=== PATIENT | female | born 1995 | race Hispanic/Latino ===

== ENCOUNTER 2018-11-19 19:25 | Observation (INO) | payer OTHER, SELFPAY ==
[2018-11-19 20:32] VITALS: BMI 27.4
[2018-11-19] MEDS ORDERED: Famotidine 20 MG TAB PO SCH (21:00)
[2018-11-19] MEDS ORDERED: Mag-Al 1200 mg/1200 mg/30 ML UDCUP PO SCH (21:00)
[2018-11-19] MEDS ORDERED: Sodium Chloride 0.9% 10 ML ONE (21:21)
[2018-11-19] MEDS ORDERED: hydrALAZINE 20 MG/ML VIAL SLOW IVP PRN (21:22)
[2018-11-19] MEDS ORDERED: Acetaminophen 500 MG TAB PO PRN (21:22)
[2018-11-19] MEDS ORDERED: Ondansetron PF 4 MG/2 ML Vial IVP PRN (21:22)
[2018-11-19] MEDS ORDERED: NS 0.9% w/ 40 MEQ KCL 1,000 ML IV SCH (21:30)
[2018-11-19 22:41] VITALS: TEMP 98.5
--- NOTE | 2018-11-19 22:53 | HP ---
PRIMARY OB: Out of town admission, [place]. CHIEF COMPLAINT: Abdominal pain and hyponatremia. HISTORY OF PRESENT ILLNESS: The patient is a 23-year-old, G1, P0 female with an intrauterine at 30 weeks and 6 days, who was referred to the [facility] ER from [facility] for abdominal pain. There, patient was evaluated and found to have hyponatremia of 124 with this right lower quadrant pain, right-sided abdominal pain, and was transferred here for evaluation. The patient reports that she has had this right-sided pain for a long period of time and has been told by her OB doctor that it is ligament pain and is not primarily concerned about other than she had this very short episode of intense abdominal pain causing her breath to be taken away and has since resolved. The patient was unaware of her low sodium but reports that she has vomited three times today. She denies any headache, chest pain, shortness of breath, cough, wheezing, diarrhea, constipation, hip problems, knee problems, muscle weakness, vaginal bleeding, leakage of fluid, urinary urgency or frequency. The patient does report she has an appetite. PAST MEDICAL HISTORY: Negative. PAST SURGICAL HISTORY: Negative. SOCIAL HISTORY: Negative. ALLERGIES: NO KNOWN DRUG ALLERGIES. MEDICATIONS: vitamins. REVIEW OF SYSTEMS: Per HPI. OB LABS: Unavailable at the time of dictation. PHYSICAL EXAMINATION: VITAL SIGNS: Blood pressure is 112/71, heart rate of 70, respiratory rate of 16, and temperature 99.3. GENERAL: She appears to be in no acute distress. She is alert, oriented, cooperative, and pleasant to interact with. HEENT: Head is normocephalic, atraumatic. LUNGS: Clear to auscultation bilaterally. HEART: Regular rate and rhythm. ABDOMEN: Gravid, soft, nontender. EXTREMITIES: Nontender, nonedematous. CERVICAL: Exam has been deferred at this time. heart tracing shows the fetus with a baseline in the 140s with moderate long-term variability, positive 15 x 15 accelerations. She is having multiple shallow variables lasting about 10 seconds. No contractions on the monitor. LABORATORY DATA: Reviewing the outside labs, the patient has sodium of 124, potassium of 3.2, glucose of 123, creatinine of 0.5, serum osmolality of 249. ASSESSMENT AND PLAN: The patient is a 23-year-old, G1, P0 female with an intrauterine at 30 weeks and 6 days with musculoskeletal pains of and likely chronic hyponatremia as the patient is without symptoms. I have ordered serum and urine osmolalities, as well as serum sodium. The patient has been placed on normal saline with potassium at maintenance and medicine hospitalist has been consulted for further evaluation of her condition. There does not appear to be any significant obstetric concerns at this time. The patient will be put under observation until recommendations are made for further evaluation. Job ID: [id number]
[2018-11-19 23:04] LABS: Anion Gap 12 mmol/L (10-20); BUN (Urea Nitrogen) 5 mg/dL (7.0-18.7); Calc. Creatinine Clearance 195 mL/min (70-130); Calcium 8.7 mg/dL (7.8-10.44); Carbon Dioxide 20 mmol/L (22-29); Chloride 107 mmol/L (98-107); Estimated GFR-MDRD Greater than 90; Glucose 107 mg/dL (70-105); Potassium 3.5 mmol/L (3.5-5.1); Sodium 135 mmol/L (136-145)
--- NOTE | 2018-11-19 23:13 | CON ---
DATE OF CONSULTATION: 11/19/2018 PRIMARY SERVICE ATTENDING: Dr. Galan with OB hospitalist service. REASON FOR CONSULT: Hyponatremia. HISTORY OF PRESENT ILLNESS: This is a 23-year-old female, G1, P0, at approximately 30 weeks gestation, presenting to Labor and Delivery triage for abdominal pain and hyponatremia. The patient was initially evaluated at the [facility] OB triage unit and referred to [facility] Labor and Delivery due to hyponatremia and right lower quadrant abdominal pain. The patient underwent evaluation including screening metabolic survey showing sodium level 124 and potassium of 3.2. The patient received intravenous normal saline, as well as Tylenol. The patient has intermittent abdominal pain thought to be round ligament in nature. The patient underwent transabdominal ultrasound evaluation showing intrauterine with heart rates in the 140s with movement noted. The patient states her has been fairly unremarkable except for intermittent nausea and reflux. The patient takes Tylenol as needed, Tums, and vitamin. The patient denied any visual disturbance, unilateral weakness, shortness of breath, chest pain, or diarrhea. The patient does admit to three episodes of emesis on 11/19/2018 after eating. PAST MEDICAL HISTORY: Reviewed and negative. PAST SURGICAL HISTORY: Reviewed and negative. CURRENT MEDICATIONS: 1. vitamin daily. 2. Tylenol p.r.n. 3. Tums p.r.n. ALLERGIES: NO KNOWN DRUG ALLERGIES. FAMILY HISTORY: No inheritable disease per patient report. SOCIAL HISTORY: No current alcohol, tobacco, or illicit drug use. Resides in [place], [place]. REVIEW OF SYSTEMS: CONSTITUTIONAL: Negative for weight loss or gain, ability to conduct usual activities. SKIN: Negative for rash, itching. EYES: Negative for double vision, pain. ENT/MOUTH: Negative for nose bleeding, neck stiffness, pain, tenderness. CARDIOVASCULAR: Negative for palpitations, dyspnea on exertion, orthopnea. RESPIRATORY: Negative for shortness of breath, wheezing, cough, hemoptysis, fever or night sweats. GASTROINTESTINAL: Negative for poor appetite, abdominal pain, heartburn, nausea, vomiting, constipation, or diarrhea. GENITOURINARY: Negative for urgency, frequency, dysuria, nocturia. MUSCULOSKELETAL: Negative for pain, swelling. NEUROLOGIC/PSYCHIATRIC: Negative for anxiety, depression. ALLERGY/IMMUNOLOGIC: Negative for skin rash, bleeding tendency. Otherwise, negative except as stated per HPI. PHYSICAL EXAMINATION: VITAL SIGNS: Currently, blood pressure 117/77, pulse 98, respiratory rate 16, temperature 97.3 degrees Fahrenheit, O2 saturation 98% on room air. GENERAL APPEARANCE: This is a 23-year-old female, alert and oriented x3, pleasant, smiling, in no acute distress. HEENT: Pupils are equal, round, reactive to light and accommodation. Extraocular muscles are intact. No scleral icterus. No conjunctival injection. Nares patent. OP is clear. Teeth in good repair. NECK: Supple. No cervical adenopathy. No thyromegaly. No carotid bruits. No JVD appreciated. Cervical spine with full active and passive range of motion. No meningeal signs noted. CHEST: Lungs are clear to auscultation bilaterally. CARDIOVASCULAR: S1-S2 without noted murmur, rub, or gallop. ABDOMEN: Gravid with fundus approximately 2 to 3 cm above the umbilicus. Mild tenderness to palpation on right and left upper quadrants. No rebound or guarding appreciated. Bowel sounds are positive in all 4 quadrants. EXTREMITIES: Warm and dry with fair turgor. No clubbing, cyanosis, or asymmetric edema appreciated. Pulses palpable distally at the dorsalis pedis, posterior tibial, and popliteal arteries bilaterally. Capillary refill less than 2 seconds. NEUROLOGIC: Cranial nerves 2 through 12 are grossly intact. No focal or lateralizing signs appreciated. PERTINENT LAB AND X-RAY FINDINGS: Sodium 124, potassium 3.2, chloride 99, CO2 of 23, BUN 7, creatinine 0.5, glucose 123. CBC showed a white blood cell count of 13.4, hemoglobin 12, hematocrit 36 and platelet count 159, with normal differential. Urinalysis positive for ketones, specific gravity 1.020, positive leukocyte esterase with urine microscopy showing 6-10 squamous epithelial cells. LFTs within normal limits. Limited abdominal ultrasound dated 11/19/2018 showed no acute process. ASSESSMENT AND PLAN: 1. Hyponatremia. Suspect volume mediated due to intrauterine and recent emesis. Recommend repeat basic metabolic profile now. Continue 1 L of normal saline. 2. Hypokalemia, mild. Suspect secondary to GI loss due to emesis. Potassium chloride supplementation. Repeat potassium level. 3. Intrauterine at 30+ weeks, stable currently. Continue routine care. heart tones in the 140s. 4. Nausea and vomiting, suspect secondary to #3. Antiemetics p.r.n. Encourage increased p.o. intake of free water. 5. Prophylaxis. vitamin daily. Tums p.r.n. 6. Code status is full. Surrogate medical decision maker not identified. Thank you for the consultation. We will continue to monitor with primary service. Job ID: [id number]
--- NOTE | 2018-11-20 07:21 | PDOC.EVN ---
Event Note - Event Note Event Note: Pt has done well overnight. No complaints. Denies nausea and vomiting. Praneeth regular diet. sodium and potassium have resolved. Vital signs reviewed and with in normal limits. 110/55 89 1. sodium 135, pottasium 3.5 Pt will be discharged home with instructions to f/u with primary OB 1wk. Fetus with cat 1 tracing. NST pending this AM.
== END 2018-11-20 08:02 | disposition home health service (06) ==
LOC: L&D/OP 19:25 → L&D 22:54
PROVIDERS: ADMIT Obstetrics & Gynecology; ATTEND Obstetrics & Gynecology
DX: O99.89 Other specified diseases and conditions complicating pregnancy, childbirth and the puerperium (principal); R10.31 Right lower quadrant pain; O99.283 Endocrine, nutritional and metabolic diseases complicating pregnancy, third trimester; E87.1 Hypo-osmolality and hyponatremia; Z3A.30 30 weeks gestation of pregnancy
CPT/HCPCS: 36415; 80048; 83930; 83935; 84300; 96365; 96366; 99285; G0378; J3480